=== PATIENT | female | born 1985 | race Caucasian/White ===

== ENCOUNTER 2019-04-04 10:02 | Day surgery (SDC) | payer MEDICAID ==
[2019-04-02 14:14] LABS: BASOPHILS # (AUTO) 0.1 X10'3 (0-0.2); BASOPHILS % (AUTO) 0.9 % (0-1); EOSINOPHILS # (AUTO) 0.1 X10'3 (0-0.9); EOSINOPHILS % (AUTO) 1.1 % (0-6); LYMPHOCYTES # (AUTO) 2.3 X10'3 (1.1-4.8); LYMPHOCYTES % (AUTO) 24.2 % (21-51); MEAN CORPUSCULAR HEMOGLOBIN 30.3 PG (27.0-31.0); MEAN CORPUSCULAR HGB CONC 33.8 g/dL (33.0-36.5); MEAN CORPUSCULAR VOLUME 89.7 FL (78-98); MEAN PLATELET VOLUME 7.3 FL (7.4-10.4); MONOCYTES # (AUTO) 0.4 X10'3 (0-0.9); NEUTROPHILS # (AUTO) 6.8 X10'3 (1.8-7.7); NEUTROPHILS % (AUTO) 69.8 % (42-75); PRE OP HEMATOCRIT 42.6 % (35.0-45.0); PRE OP HEMOGLOBIN 14.4 g/dL (12.0-16.0); PRE OP PLATELET COUNT 403 X10'3 (140-440); RED BLOOD COUNT 4.75 X10'6 (4.20-5.60); RED CELL DISTRIBUTION WIDTH 13.8 % (11.5-14.5)
[2019-04-02 14:30] LABS: ALKALINE PHOSPHATASE 69 IU/L (46-116); BLOOD UREA NITROGEN 9 MG/DL (7-18); BUN/CREATININE RATIO 9.8 (6.6-38.0); CALCIUM 9.4 MG/DL (8.5-10.1); CHLORIDE 106 MMOL/L (99-107); CREATININE 0.92 MG/DL (0.40-0.90); PRE OP ALT 24 U/L (30-65); PRE OP ANION GAP 11 (8-16); PRE OP AST 16 U/L (10-37); PRE OP BILIRUB, TOTAL 0.3 MG/DL (0.0-1.0); PRE OP GLUCOSE 93 MG/DL (70-104); PRE OP POTASSIUM 3.7 MMOL/L (3.4-5.1); PRE OP SODIUM 141 MMOL/L (135-145); TOTAL CARBON DIOXIDE 24.4 MMOL/L (24-32); eGFR 69 ML/MIN
[2019-04-02 15:13] LABS: HCG SERUM QL NEGATIVE
[~2019-04-04] VITALS: Ht 152.4 cm; Wt 104.1 kg
[2019-04-04] VITALS (9 sets, daily range): BP systolic 110–133; BP diastolic 59–80
[~2019-04-04 10:02] MED LIST: BACL10TA PO; BUPIVAcaine 0.5% inj/PF 30 ML ONE; NAPR250T4 PO; famotidine 20mg tablet PO ONE; ringers solution, lacted 1,000 ML IV SCH
[2019-04-04] MEDS ORDERED: ringers solution, lacted 1,000 ML IV SCH (12:09)
[2019-04-04] MEDS ORDERED: ondansetron/PF 4mg/2ml inj IV PRN (12:10)
[2019-04-04] MEDS ORDERED: proCHLORperazine 10 MG/2 ml inj IV PRN (12:10)
[2019-04-04] MEDS ORDERED: morphine 4 MG/ML inj SYRINge IV PRN ×2 (12:10)
[2019-04-04] MEDS ORDERED: meperidine/PF 25mg/ml syringe IV PRN ×3 (12:10)
[2019-04-04] MEDS ORDERED: neostigmine methylsulfate 1 MG/ML 10ml vial ONE (12:11)
[2019-04-04] MEDS ORDERED: dexamethasone sod phosphate 10mg/ml inj ONE (12:11)
[2019-04-04] MEDS ORDERED: glycopyrrolate 0.2mg/ml inj ONE (12:11)
[2019-04-04] MEDS ORDERED: sevoflurane 250ml liquid IH ONE (12:11)
[2019-04-04] MEDS ORDERED: midazolam 2 mg/2 ml injection ONE (12:15)
[2019-04-04] MEDS ORDERED: fentaNYL/PF 50MCG/1 ML 2ML syringe ONE (12:15)
[2019-04-04] MEDS ORDERED: LIDOcaine 2% (20mg/ml) 5ml vial ONE (12:28)
[2019-04-04] MEDS ORDERED: ketorolac trometh. 30mg/ml inj. ONE (12:28)
[2019-04-04] MEDS ORDERED: ondansetron/PF 4mg/2ml inj ONE (12:28)
[2019-04-04] MEDS ORDERED: rocuronium 10mg/ml inj IV ONE (12:28)
[2019-04-04] MEDS ORDERED: propofol inj 20 ML IV ONE (12:28)
[2019-04-04] MEDS ORDERED: BUPIVAcaine 0.5% inj/PF 30 ml vial IJ ONE (12:30)
--- NOTE | 2019-04-04 13:12 | NUR ---
Received from OR via TJ, accompanied by Anesthesiologist DR LEO and report given by Anesthesiologist. PT DROWSY, DENIES PAIN, ABDOMEN W/3 LAP SITES W/BANDAIDS, SMALL RHIANNA BARBER CDI, LO PAD IN PLACE CDI. Addendum: 04/04/19 at 1334 by Kia Mack RN Amended: Links added.
[2019-04-04] MEDS ORDERED: oxyCODONE/APAP 5-325mg tablet PO PRN ×2 (13:25)
--- NOTE | 2019-04-04 14:22 | NUR ---
D/C INSTRUCTIONS GIVEN AND GONE OVER W/PT, PT VERBALIZES UNDERSTANDING, PT PICKED UP BELONGINGS IN SAFE, D/CD TO HOME VIA W/C TO PRIVATE VEHICLE W/O INCIDENT. Addendum: 04/04/19 at 1454 by Kia Mack RN Amended: Links added.
== END 2019-04-04 14:22 | disposition home or self-care (01) ==
LOC: PAS 10:02
PROVIDERS: ATTEND Obstetrics & Gynecology
DX: Z30.2 Encounter for sterilization (principal); E66.01 Morbid (severe) obesity due to excess calories; Z68.41 Body mass index [BMI] 40.0-44.9, adult; Z87.891 Personal history of nicotine dependence; Z91.040 Latex allergy status; Z79.899 Other long term (current) drug therapy
CPT/HCPCS: 36415; 80053; 82948; 84703; 85025; 86885; 86900; 86901; A4618; A6250; A7000; J1100; J1885; J2001; J2175; J2250; J2405; J2704; J2710; J3010; J3490; J7120